=== PATIENT | male | born 1940 | race Caucasian/White ===

== ENCOUNTER 2016-07-25 09:07 | Day surgery (SDC) | payer OTHER, BC ==
[~2016-07-25] VITALS: Ht 177.8 cm; Wt 110.2 kg
[~2016-07-25 09:07] MED LIST: BUMETANIDE1 MG PO; ISOSORBIDE DINIT5 MG PO; LANTUS 3 M100 UNITS1 SC; LO-DOSE ASPIRIN81 M2 PO; MAGNESIUM CITR100 MG PO; METOPROLOL TART50 MG PO; NOVOLOG PE100 UNITS/ SC; PRAVASTATIN SOD40 MG PO; TRICOR145 MG PO; WARFARIN SODIUM1 MG PO
[2016-07-25 09:40] LABS: HEMATOCRIT 38.3 % (38.0-50.0); MCH 25.7 PG (29.0-34.0); MCHC 31.3 G/DL (30.0-36.0); MEAN PLAT.VOLUME 9.7 uM^3 (9.0-12.4); PLATELET COUNT 184 K/uL (156-360); RBC DIS.WIDTH-CV 17.2 % (11.8-14.6); RBC DIS.WIDTH-SD 51.2 % (39-53); RED BLOOD COUNT 4.67 M/uL (4.00-5.50); WHITE BLOOD COUNT 5.7 K/uL (4.1-10.2)
[2016-07-25 09:47] LABS: INTER. NORMALIZED RATIO 1.4; PROTHROMBIN TIME 14.5 (9.2-11.2)
[2016-07-25 09:50] VITALS: BP 132/65
[2016-07-25 09:58] LABS: ANION GAP 8 MEQ/L (2-14); CHLORIDE 105 MEQ/L (99-109); POTASSIUM 3.7 MEQ/L (3.7-5.4); SAMPLE HEMOLYSIS CHECK 0; SAMPLE ICTERIC CHECK 0; SAMPLE LIPEMIA CHECK 0; SODIUM 141 MEQ/L (136-147)
[2016-07-25 10:04] LABS: GFR ESTIMATE (CALCULATED) 25 mL/min/; GLUCOSE 138 mg/dL (70-99); UREA NITROGEN (BUN) 50 mg/dL (9-23)
[2016-07-25 13:47] LABS: POINT-OF-CARE METER ID UU13113675
[2016-07-25 14:35] VITALS: BP 122/59
[2016-07-25 15:35] VITALS: BP 100/60
== END 2016-07-25 16:02 | disposition home or self-care (01) ==
LOC: SDC 09:07
PROVIDERS: Surgery
DX: I13.0 Hypertensive heart and chronic kidney disease with heart failure and stage 1 through stage 4 chronic kidney disease, or unspecified chronic kidney disease (principal); E11.22 Type 2 diabetes mellitus with diabetic chronic kidney disease; N18.4 Chronic kidney disease, stage 4 (severe); I50.9 Heart failure, unspecified; I48.91 Unspecified atrial fibrillation; Z95.0 Presence of cardiac pacemaker; I25.10 Atherosclerotic heart disease of native coronary artery without angina pectoris; Z95.1 Presence of aortocoronary bypass graft; M19.90 Unspecified osteoarthritis, unspecified site; Z79.4 Long term (current) use of insulin; Z79.01 Long term (current) use of anticoagulants; Z88.5 Allergy status to narcotic agent; Z91.09 Other allergy status, other than to drugs and biological substances
CPT/HCPCS: 80048; 82948; 85027; 85610; J0690; J1100; J1170; J1644; J2405; J2720; J3010

== ENCOUNTER 2017-02-24 06:44 | Day surgery (SDC) | payer OTHER, BC ==
[~2017-02-24] VITALS: Ht 170.2 cm; Wt 113.0 kg
[~2017-02-24 06:44] MED LIST changes: +HYDROXYZINE PAM25 MG PO; +NYSTATIN15 GM TP; +PROBIOTIC1 EAC1 PO; +TERAZOSIN HCL5 MG PO; +ZYRTEC10 M2 PO
[2017-02-24 07:46] LABS: POINT-OF-CARE METER ID UU13113696
== END 2017-02-24 09:20 | disposition home or self-care (01) ==
LOC: CATH 06:44
PROVIDERS: Surgery
DX: T82.858A Stenosis of other vascular prosthetic devices, implants and grafts, initial encounter (principal); I13.2 Hypertensive heart and chronic kidney disease with heart failure and with stage 5 chronic kidney disease, or end stage renal disease; E11.22 Type 2 diabetes mellitus with diabetic chronic kidney disease; N18.6 End stage renal disease; I50.9 Heart failure, unspecified; Z99.2 Dependence on renal dialysis; Z87.891 Personal history of nicotine dependence; Z79.4 Long term (current) use of insulin; Z95.0 Presence of cardiac pacemaker; I48.91 Unspecified atrial fibrillation; Z79.82 Long term (current) use of aspirin; Z79.01 Long term (current) use of anticoagulants
CPT/HCPCS: 82948; 87641; C1725; C1769; C1894; J1644; J2250; J3010